=== PATIENT | female | born 1965 | race Caucasian/White ===

== ENCOUNTER 2017-11-28 19:50 | Emergency (ER) | payer MEDICAID ==
[~2017-11-28] VITALS: Ht 152.4 cm; Wt 73.5 kg
[2017-11-28 20:41] VITALS: Ht 152.4 cm; Wt 73.5 kg
[2017-11-28 23:18] VITALS: BP 133/76
== END 2017-11-28 23:18 | disposition home or self-care (01) ==
LOC: ED 19:50
DX: K21.9 Gastro-esophageal reflux disease without esophagitis (principal); J30.9 Allergic rhinitis, unspecified; I10 Essential (primary) hypertension; E11.9 Type 2 diabetes mellitus without complications; E78.00 Pure hypercholesterolemia, unspecified
CPT/HCPCS: J1885

== ENCOUNTER 2019-06-27 19:17 | Emergency (ER) | payer MEDICAID ==
[~2019-06-27] VITALS: Ht 149.9 cm; Wt 72.1 kg
[2019-06-27 19:36] VITALS: Ht 149.9 cm; Wt 72.1 kg
[2019-06-27 21:32] VITALS: BP 103/46
== END 2019-06-27 23:35 | disposition home or self-care (01) ==
LOC: ED 19:17
DX: J20.9 Acute bronchitis, unspecified (principal); I10 Essential (primary) hypertension; E11.9 Type 2 diabetes mellitus without complications; E78.00 Pure hypercholesterolemia, unspecified; Z98.890 Other specified postprocedural states
CPT/HCPCS: 87804; J7620